=== PATIENT | male | born 1965 | race American Indian/Alaskan Native ===

== ENCOUNTER 2019-11-13 08:30 | Day surgery (SDC) | payer BC, MEDICARE ==
[2019-11-13] MEDS ORDERED: ONDANSETRON 4 MG/2 ML INJ IV PRN (09:43)
[2019-11-13] MEDS ORDERED: fentaNYL 100 MCG/2 ML INJ IV PRN (09:43)
--- NOTE | 2019-11-13 09:50 | Anesthesia Day of Surgery ---
Anesthesia Day of Surgery - Day of Surgery Patient Examined: Yes Patient H&P Reviewed: Yes Patient is NPO: Yes
--- NOTE | 2019-11-13 09:58 | Anesthesia Consultation ---
Anesthesia Consult and Med Hx Date of service: 11/13/19 - Airway Anesthetic Teeth Evaluation: Good ROM Head & Neck: Adequate Mental/Hyoid Distance: Adequate Mallampati Class: Class III Intubation Access Assessment: Probably Good - Pre-Operative Health Status ASA Pre-Surgery Classification: ASA3 Proposed Anesthetic Plan: General - Pulmonary Hx Smoking: No Hx Asthma: No Hx Respiratory Symptoms: Yes (Can't climb two flights of stairs-[place]; can climb one flight) SOB: Yes (And can walk a city block) COPD: No Hx Pneumonia: No Hx Sleep Apnea: Yes (DX SLEEP APNEA WITH CPAP USE.) - Cardiovascular System Hx Hypertension: Yes (X 15 YRS) Hx Heart Attack/AMI: Yes (2017) Hx Pacemaker: Yes (Had myectomy for hypertrophic cardiomyopaathy in 2017) Hx Internal Defibrillator: Yes (2017 and never discharged) Hx Heart Murmur: Yes - Central Nervous System Hx Back Pain: Yes (WITH YARY LEG NUMBNESS/WEAKNESS) - Endocrine Hx Renal Disease: Yes (CRI) Hx End Stage Renal Disease: No Hx Non-Insulin Dependent Diabetes: No - Hematic Hx Anemia: Yes (NOT RECENT) - Other Systems Hx Substance Use: Yes (USES CBD OIL) Hx Cancer: No
[2019-11-13] MEDS ORDERED: LACTATED RINGERS 1,000 ML IV SCH (10:00)
[2019-11-13 10:46] LABS: BUN/Creatinine Ratio 14; Blood Urea Nitrogen 18 mg/dL (9-20); Hemolysis Index 1
[2019-11-13] MEDS ORDERED: ceFAZolin/STERILE WATER 2 GM/20 ML SYRINGE IV NR (10:58)
[2019-11-13] MEDS ORDERED: LIDOCAINE MPF (2%) 20 MG/1 ML VIAL 5 ML ONE (11:05)
[2019-11-13] MEDS ORDERED: propofoL 200 MG/20 ML VIAL IV ONE (11:05)
[2019-11-13] MEDS ORDERED: ONDANSETRON 4 MG/2 ML INJ ONE (11:05)
[2019-11-13] MEDS ORDERED: fentaNYL 100 MCG/2 ML INJ ONE (11:05)
--- NOTE | 2019-11-13 12:09 | Operative Report ---
PREOPERATIVE DIAGNOSES: Previous bladder tumor and elevated PSA, poorly compliant. He stopped his Plavix, they gave it to him. We were concerned. POSTOPERATIVE DIAGNOSES: Previous bladder tumor and elevated PSA, poorly compliant. He stopped his Plavix, they gave it to him. We were concerned. PROCEDURES: Cystoscopy, bladder biopsy, retrograde. SURGEON: Dr. Gonzales. ANESTHESIA: General. FINDINGS: This is a gentleman with elevated PSA. He is due to have a prostate biopsy in February. He was not supposed to stop his Plavix. DESCRIPTION OF PROCEDURE: The patient was brought to the operating room and placed on the operating table. Following the induction of anesthesia, placed in lithotomy position, prepped and draped in usual sterile fashion. Cystourethroscopy showed an old scar, left side with some erythema. This was biopsied. Prostate biopsies were not done. He was given Plavix and aspirin. The patient tolerated the procedure well. He needs a prostate biopsy. He understands this. He needs to check with his burnt lime drawer and not stop the Plavix against medical advice. JOB# [id number] BRYN/LORRAINE
[2019-11-13] MEDS ORDERED: WATER FOR IRRIG STERILE 2000 ML IR ONE (12:25)
[2019-11-13] MEDS ORDERED: GENTAMICIN 40 MG/ML VIAL 2 ML ONE (12:27)
[2019-11-13] MEDS ORDERED: SODIUM CHLORIDE 0.9% 100 ML ONE (12:29)
--- NOTE | 2019-11-13 12:42 | Post Operative Note ---
Date of procedure: 11/13/19 Pre-op diagnosis: hematuria inc psa Post-op diagnosis: same Findings: sligh erthema Procedure: cysto bx rpg pus Anesthesia: GETA Surgeon: JAMIE SHEIKH Estimated blood loss: none Pathology: list (bladder and prostate) Specimen disposition: to lab Condition: stable Disposition: PACU
--- NOTE | 2019-11-13 12:43 | Discharge Summary ---
Short Stay Discharge Plan Activity: other (no straining ) Weight Bearing Status: Full Weight Bearing Diet: low fat, low cholesterol, low salt Special Instructions: other (inc fluids ) Follow up with: ALEKSANDRA GARCIA MD [Primary Care Provider] - 7 Days JAMIE SHEIKH MD [Staff Physician] - 7 Days
--- NOTE | 2019-11-13 13:26 | Fluoroscopy Report ---
INTRAOPERATIVE FLUOROSCOPY: RETROGRADE URETEROGRAM INDICATION / CLINICAL INFORMATION: GROSS HEMATURIA. TECHNIQUE: Intraoperative spot images were obtained during the procedure. FINDINGS: There are multiple round filling defects in the left renal collecting system which appear to be air b ubbles.. There is a small rounded filling defect in the mid right ureter also likely representing an air bubble. There is no hydronephrosis. Fluoroscopy Time: 14 minutes. Fluoroscopy Images: 5. Signer Name: Brent Jones MD Signed: 11/13/2019 1:21 PM Workstation Name: [id number]
--- NOTE | 2019-11-13 13:26 | Ultrasound Report ---
ULTRASOUND TRANSRECTAL HISTORY: Elevated PSA, gross hematuria FINDINGS: Endorectal ultrasound guidance was provided by radiology during prostate biopsy by the urol ogist. 6 ultrasound images are presented demonstrating needle placement. Prostate volume measures 21. 8 cc. IMPRESSION: Successful ultrasound-guided prostate biopsy. Signer Name: Malcom Presley Jr, MD Signed: 11/13/2019 1:22 PM Workstation Name: [id number]
[2019-11-13 13:48] VITALS: BP 152/89
--- NOTE | 2019-11-13 14:59 | Post Anesthesia Evaluation ---
- Post Anesthesia Evaluation Patient Participated: Yes Airway Patent: Yes Stable Respiratory Function: Yes Nausea/Vomiting: No Temp > 96.8F: Yes Pain Manageable: Yes Adequeate Hydration: Yes Anesthesia Complications: No
--- NOTE | 2019-11-13 16:53 | Operative Report ---
PREOPERATIVE DIAGNOSES: Elevated PSA, hematuria. POSTOPERATIVE DIAGNOSIS: Elevated PSA, hematuria; small erythema in posterior wall of the bladder. PROCEDURE: Cystoscopy, biopsy, retrograde and prostate ultrasound biopsy. SURGEON: Dr. Gonzales. ANESTHESIA: General. FINDINGS: This is a gentleman with increased PSA and hematuria. He never saw clots. He had a little erythema in left posterolateral wall. He now presents for cystoscopy. DESCRIPTION OF PROCEDURE: The patient was brought to the operating room and placed on the operating table. Following induction of anesthesia, placed in lithotomy position, prepped and draped in usual sterile fashion. Cystourethroscopy showed erythema, which was biopsied and cauterized. Retrograde showed good filling and good drainage. The patient tolerated the procedure well. At this point, the prostate ultrasound, soaked in Betadine was placed. He was given Ancef and gentamicin. Five biopsies from each lobe were carried out. He has an approximately 21-gram prostate, was not large, tolerated the procedure well and brought to recovery in stable condition. JOB# [id number] BRYN/LORRAINE
== END 2019-11-13 08:31 | disposition home or self-care (01) ==
LOC: OR 08:30
PROVIDERS: ATTEND Urology
DX: R31.9 Hematuria, unspecified (principal); R97.20 Elevated prostate specific antigen [PSA]; I10 Essential (primary) hypertension; I20.0 Unstable angina; G43.909 Migraine, unspecified, not intractable, without status migrainosus; E78.00 Pure hypercholesterolemia, unspecified; G47.30 Sleep apnea, unspecified; Z95.1 Presence of aortocoronary bypass graft; Z95.0 Presence of cardiac pacemaker; Z88.5 Allergy status to narcotic agent; Z79.82 Long term (current) use of aspirin; Z79.899 Other long term (current) drug therapy; Z98.890 Other specified postprocedural states; Z88.8 Allergy status to other drugs, medicaments and biological substances; Z86.2 Personal history of diseases of the blood and blood-forming organs and certain disorders involving the immune mechanism
CPT/HCPCS: 36415; 52204; 55700; 74420; 76872; 80048; 88305; 88342; A4217; J0690; J1580; J2405; J2704; J3010; J7120; Q9967